=== PATIENT | male | born 1975 ===

== ENCOUNTER 2019-01-27 06:37 | Day surgery (SDC) | payer OTHER ==
--- NOTE | 2019-01-26 18:34 | Pre-Procedure Note/Attestation ---
Pre-Procedure Note/Attestation Complete Prior to Procedure Planned Procedure: bilateral Procedure Narrative: 1. Septoplasty 2. SMR inf right turbinate 3. SMR inf left turbinate Indications for Procedure Pre-Operative Diagnosis: Nasal airway obstruction secondary to septal deviation and hypertrophied inferior turbinates. Attestation I attest that I discussed the nature of the procedure; its benefits; risks and complications; and alternatives (and the risks and benefits of such alternatives ), prior to the procedure, with the patient (or the patient's legal area representative). I attest that, if there was a reasonable possibility of needing a blood transfusion, the patient (or the patient's legal area representative) was given the [facility] standardized written summary, pursuant to the Homero Nadja Blood Safety Act ([place] Health and Safety Code # 1645, as amended). I attest that I re-evaluated the patient just prior to the surgery and that there has been no change in the patient's H&P. Jayden Luevano MD Jan 26, 2019 18:34
--- NOTE | 2019-01-26 18:36 | Brief Operative Note ---
Immediate Post Operative Note Operative Note Chief Complaint: Nasal airway obstruction Pre-op Diagnosis: Nasal airway obstruction secondary to septal deviation and hypertrophied inferior turbinates. Procedure: 1. Septoplasty 2. SMR inf right turbinate 3. SMR inf left turbinate 4. ORIF nasal deformity Post-op Diagnosis: same as pre-op Surgeon: Jayden Luevano MD 911 Operator: none Additional Surgeons: none Anesthesiologist: Carmen BENNETT Anesthesia: general Specimen: none Complications: none Condition: stable Fluids: D5LR Estimated Blood Loss: volume - 200 cc Drains: none Packing: Nasal sino gel Implant(s) used?: No Jayden Luevano MD Jan 26, 2019 18:36
--- NOTE | 2019-01-26 18:44 | History and Physical ---
History & Physical (DB) History & Physical History & Physical Chief Complaint: NASAL AIRWAY OBSTRUCTION Reason for Hospitalization: OUTPT NASAL SURGERY History obtained from: Chart and Patient HPI: is a 43 year old male who presents with SEPTAL DEVIATION AND HYPERTROPHIED INFERIOR TURBINATES . 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 DOES HAVE NASAL AIRWAY OBSTRUCTION Allergy and Immunology ROS: no allergic symptoms or urticaria Hematological and Lymphatic ROS: no swollen glands, unusual bleeding or bruising Endocrine ROS: no polyuria, polydipsia, weight changes, temperature intolerance Respiratory ROS: no cough, shortness of breath, or wheezing Cardiovascular ROS: no chest pain or dyspnea on exertion Gastrointestinal ROS: no abdominal pain, change in bowel habits, or black or bloody stools Musculoskeletal ROS: no myalgias or arthralgias Neurological ROS: no TIA or stroke symptoms Dermatological ROS: no new or changing skin lesions, rashes or pruritis Physical Exam Vitals: bp 120/80, hr 75, rr 13 HT 74 INCHES, WT 240 LBS Intake/Output Summary (Last 24 hours) General appearance: alert, cooperative, no distress, appears stated age Head: Normocephalic, without obvious abnormality, atraumatic NOSE; SEPTAL DEVIATION, HYPERTROPHIED INFERIOR TURBINATES Eyes: conjunctivae/corneas clear. PERRL, EOM's intact. Throat: Lips, mucosa, and tongue normal. Teeth and gums normal Neck: supple, symmetrical, trachea midline, no adenopathy, thyroid: not enlarged, symmetric, no tenderness/mass/nodules, no carotid bruit and no JVD Lungs: clear to auscultation bilaterally Heart: regular rate and rhythm, S1, S2 normal, no murmur, click, rub or gallop Abdomen: soft, non-tender. Bowel sounds normal. No masses, no organomegaly Extremities: extremities normal, atraumatic, no cyanosis or edema Pulses: 2+ and symmetric Skin: Skin color, texture, turgor normal. No rashes or lesions Neurologic: Grossly normal Laboratories:NONE REQIURED IN OTHERWISE HEALTHY MALE UNDER 45. Estimated:60 MINUTES Imaging and ancillary data; NONE Assessment/Problem List: 1. Nasal septal deviation 2. Bilateral hypertrophied inferior turbinates. Plan: 1. Septoplasty 2. SMR inf right turbinate 3. SMR inf left turbinate DVT Prophylaxis: scd Code status: full Hospital Classification declaration: Based on this initial evaluation, and depending on the patient's clinical course, I anticipate that this patient will NOT require hospitalization. Disposition: Once the patient is stable to leave the hospital, I anticipate the patient will likely be discharged to the following environment-HOME I spent 70 minutes on this patient's case, and minutes was dedicated to counseling and/or care coordination. Case was discussed with Time of note may not reflect time of encounter. Jayden Luevano MD Jan 26, 2019 18:44
--- NOTE | 2019-01-26 18:47 | Discharge Instructions ---
Discharge Instructions Discharge Instructions Follow up with: PT HAS APPT IN DR. SHEFFIELD'S OFFICE NEXT WEEK ALREADY SCHEDULED Diet: regular Resume Normal Activity?: No Activity: light activity Pneumonia Vaccine: pt refused vaccine Influenza Vaccine (Nov to Apr): pt refused vaccine Follow Up Orders Pt. has printed post op instructions as well as post op meds. reviewed with him at pre op visit last week. Return to Work/School on: Feb 09, 2019 Special Instructions ice to face x 48 hours For Surgical Patients Dressing Care: may change May shower: No For Congestive Heart Failure Reminder Report to your physician any weight gain of 5 pounds or more in one week. Jayden Sheffield MD Jan 26, 2019 18:47
[~2019-01-27] VITALS: Ht 188 cm; Wt 108.9 kg
[2019-01-27] VITALS (9 sets, daily range): BP systolic 110–151; BP diastolic 70–94
[2019-01-27] MEDS ORDERED: ceFAZolin sod 1 GM in D5W 55 ML IV ONE (07:15)
[2019-01-27] MEDS ORDERED: TERBINAFINE HC250 MG PO (07:15)
[2019-01-27] MEDS ORDERED: LR 1000ml ONE (09:00)
[2019-01-27] MEDS ORDERED: Sterile Water Irrig 1000ml IRRIG ONE (09:00)
[2019-01-27] MEDS ORDERED: NS Irrig 1000ml ONE (09:00)
[2019-01-27] MEDS ORDERED: Lidocaine 1% 10mg/ml/Epi 0.005mg/ml 30ml vial INJ ONE (09:03)
[2019-01-27] MEDS ORDERED: Bupivacaine w/Epi 0.5% 30ml Vial INJ ONE (09:03)
[2019-01-27] MEDS ORDERED: fentaNYL 100 mcg/2 mL IV ONE ×2 (09:03→09:39)
[2019-01-27] MEDS ORDERED: Cocaine HCl 4% 4ml vial TOPIC ONE (09:03)
[2019-01-27] MEDS ORDERED: Midazolam 2mg/2ml Inj ONE ×2 (09:04→09:59)
[2019-01-27] MEDS ORDERED: DiphenhydrAMINE 50mg/ml Inj IVP PRN (09:15)
[2019-01-27] MEDS ORDERED: fentaNYL 100 mcg/2 mL IV PRN (09:15)
--- NOTE | 2019-01-27 09:16 | Anethesia Preoperative Eval ---
Anesthesia Pre-op PMH/ROS General Date of Evaluation: Jan 27, 2019 Time of Evaluation: 09:15 Anesthesiologist: klever ASA Score: ASA 1 Mallampati Score Class I : Soft palate, uvula, fauces, pillars visible Class II: Soft palate, uvula, fauces visible Class III: Soft palate, base of uvula visible Class IV: Only hard plate visible Mallampati Classification: Class II Surgeon: Chloé Diagnosis: Sinusitis Surgical Procedure: Septoplasty Anesthesia History: none Social History: smoking Family History: no anesthesia problems Allergies: Coded Allergies: No Known Allergies (Unverified , 01/26/19) Medications: see eMAR Patient NPO?: Yes NPO Date: Jan 27, 2019 NPO Time: 00:01 Past Medical History Cardiovascular: Denies: HTN, CAD, IA, valve dz, arrhythmia, other Pulmonary: Denies: asthma, COPD, THAO, other Gastrointestinal/Genitourinary: Denies: GERD, CRI, ESRD, other Neurologic/Psychiatric: Denies: dementia, CVA, depression/anxiety, TIA, other Endocrine: Denies: DM, hypothyroidism, steroids, other HEENT: Denies: cataract (L), cataract (R), glaucoma, MOAPA (L), MOAPA (R), other Hematology/Immune: Denies: anemia, DVT, bleeding disorder, other PSxH Narrative: sinus surgery Anesthesia Pre-op Phys. Exam Physician Exam Last Vital Signs Date Time Temp Pulse Resp B/P (MAP) Pulse Ox O2 Delivery O2 Flow Rate FiO2 01/27/19 07:29 Room Air 01/27/19 07:24 97.4 75 18 134/87 98 Constitutional: NAD Neurologic: CN 2-12 intact Cardiovascular: RRR Respiratory: CTA Gastrointestinal: S/NT/ND Airway Exam Mallampati Classification 2 Mallampati Score: Class II MO: full ROM: full Dentures: no upper, no lower Anesthesia Pre-op A/P Studies Pre-op Studies: EKG - SR Risk Assessment & Plan Plan: General Status Change Before Surgery: No Pre-Antibiotics Drug: ancef Given Within 1 Hr of Incision: Yes Carmen Diamond CRNA Jan 27, 2019 09:16
[2019-01-27] MEDS ORDERED: Lidocaine 1% MPF 10mg/ml 5ml ONE (09:52)
[2019-01-27] MEDS ORDERED: Dexamethasone 4mg/ml vial ONE (09:52)
[2019-01-27] MEDS ORDERED: Propofol 200mg/20ml IV ONE (09:52)
[2019-01-27] MEDS ORDERED: Ketorolac 30mg Inj ONE (09:55)
[2019-01-27] MEDS ORDERED: Metoclopramide 10mg/2ml Inj IVP PRN (10:30)
[2019-01-27] MEDS ORDERED: HYDROcodone/Acetamin 5/325 tab ORAL PRN (10:30)
[2019-01-27] MEDS ORDERED: HYDROmorphone 1mg/ml Carpuject SUBQ PRN (10:30)
--- NOTE | 2019-01-27 10:35 | Immediate Post-Op Evaluation ---
Immediate Post-Op Evalulation Immediate Post-Op Evalulation Procedure: septoplasty Date of Evaluation: Jan 27, 2019 Time of Evaluation: 10:34 IV Fluids: 800 Estimated Blood Loss: 200 Blood Pressure Systolic: 115 Blood Pressure Diastolic: 86 Pulse Rate: 100 Respiratory Rate: 14 O2 Sat by Pulse Oximetry: 100 Nausea: No Vomiting: No Complications none Patient Status: awake, reacts, patent Hydration Status: adequate Drug: ancef Given Within 1 Hr of Incision: Yes Time Given: 09:30 Carmen Diamond CRNA Jan 27, 2019 10:35
--- NOTE | 2019-01-27 13:11 | 48 Hour Post Anesthesia Eval ---
Post Anesthesia Evaluation Procedure: septoplasty Date of Evaluation: Jan 27, 2019 Time of Evaluation: 13:10 Blood Pressure Systolic: 127 0: 89 Pulse Rate: 74 Respiratory Rate: 14 O2 Sat by Pulse Oximetry: 98 Airway: patent Nausea: No Vomiting: No Hydration Status: adequate Cardiopulmonary Status: STABLE Mental Status/LOC: patient returned to baseline Post-Anesthesia Complications: none Follow-up care needed: N/A Carmen Diamond CRNA Jan 27, 2019 13:11
--- NOTE | 2019-01-27 15:45 | Operative Note - Dictated ---
DATE OF OPERATION: 01/27/2019 SURGEON: Jayden Luevano M.D. BAR ROLLER: None. ANESTHESIOLOGIST: Carmen Diamond CRNA. ANESTHESIA: General LMA as well as 20 mL of 50:50 mixture 1% lidocaine with 1:100,000 epinephrine and 0.5% Sensorcaine with 1:200,000 epinephrine. Additionally, 4 mL of 4% topical cocaine were placed inside the nose. Two nasal pledgets in either nostril accounted for at the end of the case. PREOPERATIVE DIAGNOSES: Nasal airway obstruction, nasal deformity secondary to septal deviation, hypertrophied right and left inferior turbinates. The patient failed nasal steroids and antihistamines. PROCEDURE: 1. Septoplasty. 2. Submucous resection, right inferior turbinate. 3. Submucous resection, left inferior turbinate. 4. Repair of nasal deformity. TECHNIQUE: The patient prepped and draped in usual manner via LMA general anesthesia. A time-out was performed. All agreed as to the procedures to be done and equipment indicated, which was present in the room. I proceeded to make an incision in the left inferior turbinate with #15 blade. Utilizing radiofrequency wand, setting of 6 coated with saline gel, 2 passes 10 seconds each. Outfractured with a Boies elevator. I then turned my attention to the contralateral inferior turbinate. Incision made with a #15 blade and 2 passes with the aforementioned radiofrequency wand after coating with gel. Outfractured with a Boies elevator. I then made a [place] incision on the right where the septal deviation was. I was able to elevate the perichondrium and periosteum in either side of the septum without violating the mucous membrane on the left side of the septum. I then removed the septal cartilage with an angled scissors and a straight Lola. This was then sewn back together with a 4-0 plain suture x2. I made between the cartilage incision with #15 blade and elevated with an Aufricht the periosteum and perichondrium of the anterior nose. I then used a gouge osteotome to remove the bump and medial osteotomies. I then proceeded to use a straight guarded osteotome to make low lateral osteotomies. I used a Quisling on the left side of the nose to complete the fracture. Outfractured with an Hero forceps and a Dolphin making sure there was no greenstick fracture. I then placed a stent on the nose, which did well, stayed well. Nose was straight. Please note, I also did prior to placing the stent and tape. One syringe each in the nares of nasal Sinu-Foam gel. COUNTS: Sponge and needle count was correct per all in the room. ESTIMATED BLOOD LOSS: 200 mL. COMPLICATIONS: None. DRAINS: None. Jayden Luevano M.D. DR: SIMONE JOB#: [id number] CC: LEXY
[2019-02-03] MEDS ORDERED: Dexamethasone 4mg/ml vial IVP ONE (07:30)
== END 2019-01-27 13:50 | disposition home or self-care (01) ==
LOC: SUR 06:37
DX: J34.2 Deviated nasal septum (principal); J34.3 Hypertrophy of nasal turbinates; J34.89 Other specified disorders of nose and nasal sinuses
CPT/HCPCS: 30140; 30520; J0690; J1100; J1885; J2250; J2405; J2704; J3010; J7120; 94003; 94150